=== PATIENT | female | born 1930 | race Caucasian/White ===

== ENCOUNTER 2018-01-04 11:06 | Emergency (ER) | payer MEDICARE ==
[~2018-01-04] VITALS: Ht 167.6 cm; Wt 60.3 kg
--- OUTSIDE RECORDS SUMMARY | 2018-01-04 11:08 | XMS REPORT | Clinical Summary ---
Author Author LEOBARDO [facility] Address Unknown Phone Unavailable Care Team Providers Care Manufacturing Mechanic Name Role Phone PCP Unavailable Allergies Active Allergy Reactions Severity Noted Date Comments Hydralazine Analogues Rash Low 01/29/2016 Current Medications Prescription Sig. Disp. Refills Start End Date Status Date RIVAROXABAN (XARELTO Take 20 mg by mouth Active ORAL) nightly . irbesartan (AVAPRO) 150 Take 150 mg by mouth Active MG tablet daily. furosemide (LASIX) 20 MG Take 20 mg by mouth Active tablet daily. cholecalciferol, vitamin Take 4,000 Units by mouth Active D3, 4,000 unit Tab daily. ascorbic acid, vitamin C, Take 1,000 mg by mouth Active (VITAMIN C) 1000 MG daily. tablet SACCHAROMYCES BOULARDII Take by mouth daily. Active (PROBIOTIC, S.BOULARDII, ORAL) amiodarone (PACERONE) 100 Take 1 tablet (100 mg 30 tablet 1 01/31/20 01/31/20 MG tablet total) by mouth daily. 16 17 amLODIPine (NORVASC) 5 MG Take 1 tablet (5 mg 60 tablet 1 01/31/20 01/31/20 tablet total) by mouth 2 (two) 16 17 times daily. hydrochlorothiazide Take 1 tablet (25 mg 30 tablet 0 01/31/20 (HYDRODIURIL) 25 MG total) by mouth daily. 16 17 tablet amiodarone (PACERONE) 200 Take 200 mg by mouth 2 09/11/19 Discontin MG tablet (two) times daily. 18 ued atenolol (TENORMIN) 25 MG Take 25 mg by mouth 2 09/11/19 Discontin tablet (two) times daily. 18 ued Active Problems Problem Noted Date Persistent atrial fibrillation (HCC) 09/11/2017 History of cardioversion -- 09/11/2017 -- single 200 joule impulse converted 09/11/2017 atrial fibrillation to sinus bradycardia -- [facility] Resolved Problems Problem Noted Date Resolved Date Symptomatic bradycardia 01/29/2016 09/11/2017 PAF (paroxysmal atrial fibrillation) (HCC) 01/29/2016 09/11/2017 Encounters Date Type Specialty Care Team Description [facility] History of cardioversion Encounter 09/11/2017 Orders Only General Internal Medicine after 01/03/2017 Family History Medical History Relation Name Comments Heart disease Mother Hypertension Sister Relation Name Status Comments Mother Sister Social History Tobacco Use Types Packs/Day Years Used Date Never Smoker Smokeless Tobacco: Never Used Alcohol Use Drinks/Week oz/Week Comments No Sex Assigned at Date Recorded Not on file Last Filed Vital Signs Vital Sign Reading Time Taken Blood Pressure 128/60 09/11/2017 1:00 PM MACHINE LEAD BURNER Pulse 39 09/11/2017 1:00 PM MACHINE LEAD BURNER Temperature 35.7 C (96.2 F) 09/11/2017 9:14 AM MACHINE LEAD BURNER Respiratory Rate 17 09/11/2017 1:00 PM MACHINE LEAD BURNER Oxygen Saturation 100% 09/11/2017 12:00 PM MACHINE LEAD BURNER Inhaled Oxygen - - Concentration Weight 64.2 kg (141 lb 9.6 oz) 09/11/2017 9:14 AM MACHINE LEAD BURNER Height 170.2 cm (5' 7") 09/11/2017 9:14 AM MACHINE LEAD BURNER Body Mass Index 22.18 09/11/2017 9:14 AM MACHINE LEAD BURNER Plan of Treatment Not on file Results * EKG-SCANNED (09/17/2017 10:20 AM) * RHYTHM STRIP - SCAN (09/17/2017 10:20 AM) * ECG 12 lead (09/11/2017 1:18 PM) Specimen Performing Laboratory [facility] Narrative Ventricular Rate 42 BPM Atrial Rate 42 BPM P-R Interval 158 ms QRS Duration 94 ms Q-T Interval 616 ms QTC Calculation(Bazett) 514 ms P [place] 98 degrees R [place] -52 degrees T [place] 268 degrees Marked sinus bradycardia with Premature supraventricular complexes Left axis deviation Possible Anterior infarct (cited on or before 29-JAN-2016) ST & T wave abnormality, consider inferolateral ischemia Prolonged QT Abnormal ECG When compared with ECG of 29-JAN-2016 17:37, Significant changes have occurred Confirmed by MD LETY, IHAB ([id number]) on 09/14/2017 1:36:13 PM Procedure Note Interface, External Ris In - 09/14/2017 1:36 PM MACHINE LEAD BURNER Ventricular Rate 42 BPM Atrial Rate 42 BPM P-R Interval 158 ms QRS Duration 94 ms Q-T Interval 616 ms QTC Calculation(Bazett) 514 ms P [place] 98 degrees R [place] -52 degrees T [place] 268 degrees Marked sinus bradycardia with Premature supraventricular complexes Left axis deviation Possible Anterior infarct (cited on or before 29-JAN-2016) ST & T wave abnormality, consider inferolateral ischemia Prolonged QT Abnormal ECG When compared with ECG of 29-JAN-2016 17:37, Significant changes have occurred Confirmed by MD LETY, IHAB ([id number]) on 09/14/2017 1:36:13 PM after 01/03/2017
[2018-01-04] MEDS ORDERED: TETANUS/DIPHTHERIA TOX ADULT 0.5 ML SYR IM ONE (11:45)
--- NOTE | 2018-01-04 12:25 | Diagnostic Imaging Report ---
PROCEDURE:X-RAY RIGHT LOWER LEG COMPARISON:None. INDICATIONS:LOWER LEG PAIN, FALL, HX OF ANKLE FRACTURE FINDINGS: There are no acute fractures, dislocations, lytic or blastic lesions. Old fracture deformities of the distal right fibula and screw fixation of the medial malleolus. The soft-tissues are unremarkable. CONCLUSION: No acute fracture or dislocation of the right ankle. Old fracture deformities of the distal right fibula and screw fixation of the medial malleolus. Dictated by: Nader Nicolas M.D. on 01/04/2018 at 12:26 Electronically approved by: Nader Nicolas M.D. on 01/04/2018 at 12:26
--- NOTE | 2018-01-04 13:34 | Diagnostic Imaging Report ---
EXAMINATION: Head and cervical spine CT without contrast. HISTORY: Status post fall, head trauma 2 days ago, pain, patient on Xerelto. COMPARISON: None. TECHNIQUE: Multidetector axial images were obtained without contrast from the foramen magnum to the vertex and through the cervical spine. The images were reconstructed using brain and bone algorithms. Thin section brain images were reformatted into coronal and sagittal planes. Image quality: Motion artifact limits evaluation of the skull base and upper cervical spine. HEAD CT FINDINGS: Skull: No lytic or blastic lesions. No fractures. Parenchyma: Moderate confluent periventricular, giang radiata and centrum semiovale white matter hypodensities, most likely nonspecific chronic microvascular ischemic changes. No mass, hemorrhage or CT evidence of acute vascular insult. Brain volume: Normal for age. Ventricles: No hydrocephalus or displacement. Arteries: No density suggestive of thrombus. Dural sinuses: No abnormal density. Extra-axial spaces: No abnormal density. Foramen magnum: No mass, Chiari malformation, or basilar invagination. Sella: No obvious mass. Paranasal/mastoid sinuses: Imaged portions unremarkable. CERVICAL SPINE CT FINDINGS: Alignment:Reversal of the cervical lordosis. Soft tissues: Partially visualized hypodense nodule in the right lobe of the thyroid gland and retropharyngeal right ICA is some herniation of the anatomy. Vertebrae: Fusion of the C3-C4 vertebral bodies, partial interbody fusion at C2-C3 and solid fusion of the posterior elements from C2 through C4 bilaterally. Minimal chronic anterior wedging of the C4 vertebral body, otherwise normal height and density. No acute fracture, infection or neoplasm. Degenerative changes: C1-C2: Normal. C2-C3: Mild facet arthrosis without stenosis. C3-C4: Fused level without stenosis. C4-C5: Small disc osteophyte uncovertebral and facet arthrosis. Mild foraminal narrowing. C5-C6: Disc osteophyte, uncovertebral and facet arthrosis mainly on the the right side. Severe right and moderate left foraminal stenosis. C6-C7: Disc osteophyte formation, bilateral uncovertebral and facet arthrosis. Moderate bilateral foraminal stenosis. C7-T1: Bilateral facet arthrosis with minimal anterolisthesis. No stenoses. IMPRESSION: Head CT: 1. No acute intracranial hemorrhage. 2. Moderate chronic microvascular ischemic changes Cervical spine CT: 1. No acute fractures or dislocations. 2. Chronic degenerative changes as described. Note: Acute post traumatic spinal cord, vascular or ligamentous injury cannot adequately be assessed with CT. Signed by: Dr. An Baldwin M.D. on 01/04/2018 1:31 PM
[2018-01-04 15:25] VITALS: BP 174/55
== END 2018-01-04 14:55 | disposition home or self-care (01) ==
LOC: ER 11:06
DX: S81.811A Laceration without foreign body, right lower leg, initial encounter (principal); M54.2 Cervicalgia; W01.0XXA Fall on same level from slipping, tripping and stumbling without subsequent striking against object, initial encounter; Y92.009 Unspecified place in unspecified non-institutional (private) residence as the place of occurrence of the external cause; Z79.01 Long term (current) use of anticoagulants; I48.91 Unspecified atrial fibrillation; I10 Essential (primary) hypertension
CPT/HCPCS: 70450; 72125; 90714; 99284

== ENCOUNTER 2018-01-17 00:35 | Emergency (ER) | payer MEDICARE ==
[~2018-01-17] VITALS: Ht 167.6 cm; Wt 60.3 kg
--- OUTSIDE RECORDS SUMMARY | 2018-01-17 00:38 | XMS REPORT | Continuity of Care Document ---
Author Author [facility] Organization [facility] Address [address] [place] [address] Phone Unavailable Care Team Providers Care Back Pad Inspector Name Role Phone BRITTON MCMILLAN MD PCP Insurance Providers Guarantor Joyce Lawrence Address [address] [place] [address] Email PTDECLINED Payer [employer] Medicare Advantage Policy Number [id number] Subscriber's Name Joyce Lawrence Relationship 18 Self / Same As Patient Group Number [id number] Group Name RETIRED Effective Date 96 Advance Directives Directive Response Recorded Date/Time Does the patient have an advance directive? No 03/29/16 6:23am If yes, is advance directive on file with [facility]? No 03/29/16 6:23am If not on file with [facility] will patient provide a copy? No 03/29/16 6:23am Do you have a Directive to Physician? No 01/04/18 12:18pm Do you have a Medical Power of Biological Science Technician Fish? No 01/04/18 12:18pm Do you have an out of hospital Do Not Resuscitate Order? No 01/04/18 12:18pm Do you have any special needs we should be aware of? No 01/04/18 12:18pm Do you have a support person here with you today? Yes 01/04/18 12:18pm Did patient receive Notice of Privacy Practices? Yes 01/04/18 12:18pm Did patient receive patient rights and responsibilities? Yes 01/04/18 12:18pm Problems No problem information available. Medications No medication information available. Social History Smoking Status Start Date Stop Date Never Smoker Hospital Discharge Instructions No hospital discharge instruction information available. Plan of Care Discharge Date 01/04/18 2:55pm Disposition HOME, SELF-CARE Condition at Discharge Stable Instructions/Education Provided Fall Prevention Wound Care (General) Prescriptions See Medication Section Referrals BRITTON MCMILLAN MD Order Date: Call for an appointment Address: [address] [place] [address] [id number] Additional Instructions/Education Call for follow up appointment to see your medical provider to ensure wound is healing. Take your medication as prescribed by your PCP. discussed at the bedside, drink fluids, rest and return to the emergency department for any fever, shortness of breath, chest pain, abdominal pain, trouble handling oral secretions or any new concerns. Functional Status No functional status information available. Allergies, Adverse Reactions, Alerts Allergen Type Severity Reaction Status Last Updated Codeine Allergy Hallucinations Active 03/28/16 Immunizations No immunization information available. Vital Signs Acute Vital Signs Vital Response Date/Time Pulse Pulse Rate (adult) 52 bpm (60 - 90) 01/04/2018 3:25pm Respiratory Rate 20 bpm (12 - 24) 01/04/2018 3:25pm Blood Pressure 174/55 mm Hg 01/04/2018 3:25pm Height 5 ft 6 in 01/04/2018 11:20am Weight 133 lb 01/04/2018 11:20am Body Mass Index 21.5 kg/m^2 01/04/2018 11:20am Results No relevant diagnostic test, laboratory data and/or discharge summary information available. Procedures Procedure Status Date Provider(s) Computed tomography of brain without radiopaque contrast Active 01/04/18 VITA JIMÉNEZ NP Computed tomography of cervical spine without contrast Active 01/04/18 VITA JIMÉNEZ NP Encounters Encounter Location Arrival/Admit Date Discharge/Depart Date Attending Provider Departed Emergency Room [facility] 01/04/18 11:06am 01/04 2:55pm SEVERIANO BRAGA MD
--- OUTSIDE RECORDS SUMMARY | 2018-01-17 00:38 | XMS REPORT | Clinical Summary ---
Author Author LEOBARDO [facility] Address Unknown Phone Unavailable Care Team Providers Care Circulation Librarian Name Role Phone PCP Unavailable Allergies Active [...] 09/11/2017 atrial fibrillation to sinus bradycardia -- [facility] Resolved Problems Problem Noted Date Resolved Date Symptomatic bradycardia 01/29/2016 09/11/2017 PAF (paroxysmal atrial fibrillation) (HCC) 01/29/2016 09/11/2017 Encounters Date Type Specialty [facility] En[facility] 09/11/2017 Orders Only General Internal Medicine after 01/16/2017 Family History Medical History Relation Name Comments Heart disease Mother Hypertension Sister Relation Name Status Comments Mother Sister Social History Tobacco Use Types Packs/Day Years Used Date Never Smoker Smokeless Tobacco: Never Used Alcohol Use Drinks/Week oz/Week Comments No Sex Assigned at Date Recorded Not on file Last Filed Vital Signs Vital Sign Reading Time Taken Blood Pressure 128/60 09/11/2017 1:00 PM APPLICATION INTEGRATION ENGINEER Pulse 39 09/11/2017 1:00 PM APPLICATION INTEGRATION ENGINEER Temperature 35.7 C (96.2 F) 09/11/2017 9:14 AM APPLICATION INTEGRATION ENGINEER Respiratory Rate 17 09/11/2017 1:00 PM APPLICATION INTEGRATION ENGINEER Oxygen Saturation 100% 09/11/2017 12:00 PM APPLICATION INTEGRATION ENGINEER Inhaled Oxygen - - Concentration Weight 64.2 kg (141 lb 9.6 oz) 09/11/2017 9:14 AM APPLICATION INTEGRATION ENGINEER Height 170.2 cm (5' 7") 09/11/2017 9:14 AM APPLICATION INTEGRATION ENGINEER Body Mass Index 22.18 09/11/2017 9:14 AM APPLICATION INTEGRATION ENGINEER Plan of Treatment Not on file Results * EKG-SCANNED (09/17/2017 10:20 AM) * RHYTHM STRIP - SCAN (09/17/2017 10:20 AM) * ECG 12 lead (09/11/2017 1:18 PM) Specimen Performing Laboratory [facility] Narrative Ventricular Rate 42 BPM Atrial Rate 42 BPM P-R Interval 158 ms QRS Duration 94 ms Q-T Interval 616 ms QTC Calculation(Bazett) 514 ms P [place] 98 degrees R [place] -52 degrees T [place] 268 degrees Marked sinus bradycardia with Premature supraventricular complexes Left axis deviation Possible Anterior infarct (cited on or before 29-JAN-2016) ST & T wave abnormality, consider inferolateral ischemia Prolonged QT Abnormal ECG When compared with ECG of 29-JAN-2016 17:37, Significant changes have occurred Confirmed by MD LETY, IHAB ([id number]) on 09/14/2017 1:36:13 PM Procedure Note Interface, External Ris In - 09/14/2017 1:36 PM APPLICATION INTEGRATION ENGINEER Ventricular Rate 42 BPM Atrial Rate 42 BPM P-R Interval 158 ms QRS Duration 94 ms Q-T Interval 616 ms QTC Calculation(Bazett) 514 ms P [place] 98 degrees R [place] -52 degrees T [place] 268 degrees Marked sinus bradycardia with Premature supraventricular complexes Left axis deviation Possible Anterior infarct (cited on or before 29-JAN-2016) ST & T wave abnormality, consider inferolateral ischemia Prolonged QT Abnormal ECG When compared with ECG of 29-JAN-2016 17:37, Significant changes have occurred Confirmed by MD LETY, IHAB ([id number]) on 09/14/2017 1:36:13 PM after 01/16/2017
--- OUTSIDE RECORDS SUMMARY | 2018-01-17 00:38 | XMS REPORT ---
Author Author [facility] Address Unknown Phone Unavailable Care Team Providers Care Coater Smoking Pipe Name Role Phone SEVERIANO BRAGA Unavailable Unavailable Problems This patient has no known problems. Allergies, Adverse Reactions, Alerts This patient has no known allergies or adverse reactions. Medications This patient has no known medications. Results Test Description Test Time Test Comments Text Results Atomic Results Result Comments LOWER LEG RIGHT [place] [address] Patient Name: JOYCE LAWRENCE MR #: [id number] : 1930 Age/Sex: 87/F Req #: [id number] Adm Physician: Ordered by: VITA JIMÉNEZ FUR TINTER Report #: [id number] Location: ER Room/Bed: Procedure: [id number] DX/LOWER LEG RIGHT Exam Date: 01/04/18 Exam Time: 1153 REPORT STATUS: Signed PROCEDURE: X-RAY RIGHT LOWER LEG COMPARISON: None. INDICATIONS: LOWER LEG PAIN, FALL, HX OF ANKLE FRACTURE FINDINGS: There are no acute fractures, dislocations, lytic or blastic lesions. Old fracture deformities of the distal right fibula and screw fixation of the medial malleolus. The soft-tissues are unremarkable. CONCLUSION: No acute fracture or dislocation of the right ankle. Old fracture deformities of the distal right fibula and screw fixation of the medial malleolus. Dictated by: Nader Regalado M.D. on 01/04/2018 at 12 :26 Electronically approved by: Nader Regalado M.D. on 01/04/2018 at 12: 26 Dictated By: NADER REGALADO MD [id number] Transcribed By: MARCIN on 01/04/18 1226 COPY TO: VITA JIMÉNEZ NP CT CERVICAL SPINE WO [place] [address] Patient Name: JOYCE LAWRENCE MR #: [id number] : 1930 Age/Sex: 87/F Req #: [id number] Adm Physician: Ordered by: VITA JIMÉNEZ NP Report #: [id number] Location: ER Room/Bed: Procedure: [id number] CT/CT CERVICAL SPINE WO Exam Date: 01/04/18 Exam Time: 1215 REPORT STATUS: Signed EXAMINATION: Head and cervical spine CT without contrast. HISTORY: Status post fall, head trauma 2 days ago, pain, patient on Xerelto. COMPARISON: None. TECHNIQUE: Multidetector axial images were obtained without contrast from the foramen magnum to the vertex and through the cervical spine. The images were reconstructed using brain and bone algorithms. Thin section brain images were reformatted into coronal and sagittal planes. Image quality: Motion artifact limits evaluation of the skull base and upper cervical spine. HEAD CT FINDINGS: Skull: No lytic or blastic lesions. No fractures. Parenchyma: Moderate confluent periventricular, giang radiata and centrum semiovale white matter hypodensities, most likely nonspecific chronic microvascular ischemic changes. No mass, hemorrhage or CT evidence of acute vascular insult. Brain volume: Normal for age. Ventricles: No hydrocephalus or displacement. Arteries: No density suggestive of thrombus. Dural sinuses: No abnormal density. Extra-axial spaces: No abnormal density. Foramen magnum: No mass, Chiari malformation, or basilar invagination. Sella: No obvious mass. Paranasal/mastoid sinuses : Imaged portions unremarkable. CERVICAL SPINE CT FINDINGS: Alignment:Reversal of the cervical lordosis. Soft tissues: Partially visualized hypodense nodule in the right lobe of the thyroid gland and retropharyngeal right ICA is some herniation of the anatomy. Vertebrae: Fusion of the C3-C4 vertebral bodies, partial interbody fusion at C2-C3 and solid fusion of the posterior elements from C2 through C4 bilaterally. Minimal chronic anterior wedging of the C4 vertebral body, otherwise normal height and density. No acute fracture, infection or neoplasm. Degenerative changes: C1-C2: Normal. C2-C3: Mild facet arthrosis without stenosis. C3-C4: Fused level without stenosis. C4-C5 : Small disc osteophyte uncovertebral and facet arthrosis. Mild foraminal narrowing. C5-C6: Disc osteophyte, uncovertebral and facet arthrosis mainly on the the right side. Severe right and moderate left foraminal stenosis. C6-C7: Disc osteophyte formation, bilateral uncovertebral and facet arthrosis. Moderate bilateral foraminal stenosis. C7-T1: Bilateral facet arthrosis with minimal anterolisthesis. No stenoses. IMPRESSION: Head CT: 1. No acute intracranial hemorrhage. 2. Moderate chronic microvascular ischemic changes Cervical spine CT: 1. No acute fractures or dislocations. 2. Chronic degenerative changes as described. Note: Acute post traumatic spinal cord, vascular or ligamentous injury cannot adequately be assessed with CT. Signed by: Dr. An Baldwin M.D. on 01/04/2018 1:31 PM Dictated By: AN BALDWIN MD [id number] Transcribed By: OSWALD on 01/04/18 1331 COPY TO: VITA JIMÉNEZ NP CT BRAIN WO [place] [address] Patient Name: JOYCE LAWRENCE MR #: [id number] : 1930 Age/Sex: 87/F Req #: [id number] [facility] Physician: Ordered by: VITA JIMÉNEZ FUR TINTER Report #: [id number] Location: ER Room/Bed: Procedure: [id number] CT/CT BRAIN WO Exam Date: 01/04/18 Exam Time: 1215 REPORT STATUS: Signed EXAMINATION: Head and cervical spine CT without contrast. HISTORY: Status post fall, head trauma 2 days ago, pain, patient on Xerelto. COMPARISON: None. TECHNIQUE: Multidetector axial images were obtained without contrast from the foramen magnum to the vertex and through the cervical spine. The images were reconstructed using brain and bone algorithms. Thin section brain images were reformatted into coronal and sagittal planes. Image quality: Motion artifact limits evaluation of the skull base and upper cervical spine. HEAD CT FINDINGS: Skull: No lytic or blastic lesions. No fractures. Parenchyma: Moderate confluent periventricular, giang radiata and centrum semiovale white matter hypodensities, most likely nonspecific chronic microvascular ischemic changes. No mass, hemorrhage or CT evidence of acute vascular insult. Brain volume: Normal for age. Ventricles: No hydrocephalus or displacement. Arteries: No density suggestive of thrombus. Dural sinuses: No abnormal density. Extra-axial spaces: No abnormal density. Foramen magnum: No mass, Chiari malformation, or basilar invagination. Sella: No obvious mass. Paranasal/mastoid sinuses : Imaged portions unremarkable. CERVICAL SPINE CT FINDINGS: Alignment:Reversal of the cervical lordosis. Soft tissues: Partially visualized hypodense nodule in the right lobe of the thyroid gland and retropharyngeal right ICA is some herniation of the anatomy. Vertebrae: Fusion of the C3-C4 vertebral bodies, partial interbody fusion at C2-C3 and solid fusion of the posterior elements from C2 through C4 bilaterally. Minimal chronic anterior wedging of the C4 vertebral body, otherwise normal height and density. No acute fracture, infection or neoplasm. Degenerative changes: C1-C2: Normal. C2-C3: Mild facet arthrosis without stenosis. C3-C4: Fused level without stenosis. C4-C5 : Small disc osteophyte uncovertebral and facet arthrosis. Mild foraminal narrowing. C5-C6: Disc osteophyte, uncovertebral and facet arthrosis mainly on the the right side. Severe right and moderate left foraminal stenosis. C6-C7: Disc osteophyte formation, bilateral uncovertebral and facet arthrosis. Moderate bilateral foraminal stenosis. C7-T1: Bilateral facet arthrosis with minimal anterolisthesis. No stenoses.
--- NOTE | 2018-01-17 01:35 | Diagnostic Imaging Report ---
EXAMINATION: Head CT without contrast. HISTORY:Status post fall. COMPARISON:CT brain from 01/04/2018. TECHNIQUE: Multidetector axial images were obtained from the foramen magnum to the vertex without contrast. The images were reconstructed using brain and bone algorithms. Thin section brain images were reformatted into coronal and sagittal planes. Intravenous contrast: None IMAGE QUALITY: Acceptable. FINDINGS: Skull/scalp: No lytic or blastic. lesions. No surgical changes. Parenchyma: Nonspecific bilateral frontoparietal confluent periventricular and patchy subcortical white matter hypodensity are likely related to small vessel ischemic changes. No acute hemorrhage, mass or acute major vascular territorial infarct. Arteries: Atherosclerotic calcification in bilateral carotid siphon. Dural sinuses: No abnormal density suggestive of thrombosis. Ventricles: No hydrocephalus or displacement. Extra-axial spaces: No abnormal density. Brain volume: Generalized age-related cerebral volume loss. Craniocervical junction: No mass, Chiari malformation, or basilar invagination. Sella: No mass. Paranasal/mastoid sinuses: Imaged portions unremarkable. IMPRESSION: No acute intracranial abnormality. No change since CT head from 01/04/2018. Chronic findings: Moderate supratentorial white matter microvascular ischemic changes. Generalized age-related cerebral volume loss. Signed by: Dr. Vianca Lenz M.D. on 01/17/2018 1:31 AM
--- NOTE | 2018-01-17 01:44 | Diagnostic Imaging Report ---
History: Fall. Comparison studies: CT cervical spine from 01/04/2018. Technique: Axial images were obtained through the cervical region.. Coronal and sagittal images reconstructed from the axial data.. Intravenous contrast: None Findings: Fractures: None. Soft tissue injuries: None. Atlantoaxial articulation: Intact. Alignment: Reversal of normal cervical lordosis is either positional or due to muscle spasm. Mild dextrocurvature of the cervical spine. 1.5 mm grade 1 retrolisthesis at C4-C5 Cervicomedullary junction: No abnormalities. The foramen magnum is patent. Soft tissues: Unchanged spiculated airspace opacity in right lung apex and scarring in left lung apex. Vertebrae: Diffuse osseous demineralization. Osseous fusion of posterior elements from C2 to C4. No fractures, infection or neoplasm. Degenerative changes: C3-C4: Near-complete loss of intervertebral disc space with partial osseous fusion. C4-C5: Moderate degenerative disc disease. Mild right foraminal stenosis due to facet and uncovertebral arthrosis. C5-C6: Moderate to severe degenerative disc disease. Posterior disc osteophyte complex results in mild canal stenosis. Severe right foraminal stenosis due to facet and uncovertebral arthrosis. C6-C7: Moderate degenerative disc disease. Moderate right and mild left foraminal stenosis due to facet and uncovertebral arthrosis.. IMPRESSION: 1. No acute cervical spine fracture. Reversal of normal cervical lordosis is either positional or due to muscle spasm. 2. Ligament, spinal cord and or vascular abnormalities cannot be excluded on the basis of this examination. 3. Cervical spondylosis as detailed above. Signed by: Dr. Vianca Lenz M.D. on 01/17/2018 1:40 AM
[2018-01-17 01:47] VITALS: BP 181/76
== END 2018-01-17 01:52 | disposition home or self-care (01) ==
LOC: ER 00:35
DX: S00.83XA Contusion of other part of head, initial encounter (principal); W18.2XXA Fall in (into) shower or empty bathtub, initial encounter; Y93.E1 Activity, personal bathing and showering; Y92.002 Bathroom of unspecified non-institutional (private) residence as the place of occurrence of the external cause; I10 Essential (primary) hypertension; I48.91 Unspecified atrial fibrillation
CPT/HCPCS: 70450; 72125; 99283

== ENCOUNTER 2018-02-18 13:30 | Emergency (ER) | payer MEDICARE ==
[~2018-02-18] VITALS: Ht 167.6 cm; Wt 60.3 kg
[2018-02-18] MEDS ORDERED: IBUPROFEN 600 MG TAB PO STA (14:30)
[2018-02-18 15:20] LABS: BASOPHILS % 0.2 % (0.0-1.0); EOSINOPHILS % 0.1 % (0.0-6.0); HEMOGLOBIN 13.4 g/dL (12.0-16.0); LYMPHOCYTES # (AUTO) 0.7 (1.0-3.2); LYMPHOCYTES % 4.6 % (18.0-39.1); MEAN CORPUSCULAR HEMOGLOBIN 30.5 pg (28-32); MEAN CORPUSCULAR HGB CONC 33.5 g/dL (31-35); MEAN CORPUSCULAR VOLUME 90.9 fL (81-99); MONOCYTES # (AUTO) 0.7 (0.2-0.8); MONOCYTES % 4.8 % (4.4-11.3); NEUTROPHILS # (AUTO) 13.8 (2.1-6.9); NEUTROPHILS % 89.8 % (38.7-80.0); PLATELET COUNT 168 x10e3/uL (140-360); RED CELL DISTRIBUTION WIDTH 14.7 % (11.7-14.4)
[2018-02-18 15:32] LABS: BILIRUBIN,URINE NEGATIVE (NEGATIVE); CLARITY,URINE CLEAR (CLEAR); COLOR,URINE YELLOW (YELLOW); KETONES,URINE NEGATIVE (NEGATIVE); LEUKOCYTE ESTERASE ,URINE NEGATIVE (NEGATIVE); NITRITE,URINE NEGATIVE (NEGATIVE); PROTEIN,URINE DIPSTICK NEGATIVE (NEGATIVE); URINE UROBILINOGEN 0.2 mg/dL (0.2 - 1)
[2018-02-18 15:32] LABS: ALBUMIN 4.1 g/dL (3.5-5.0); ALBUMIN/GLOBULIN RATIO 1.1 (0.8-2.0); ANION GAP 14.1 mmol/L (8-16); CALCIUM 9.9 mg/dL (8.4-10.2); CREATININE, SERUM 1.22 mg/dL (0.57-1.11); POTASSIUM 4.1 mmol/L (3.5-5.1)
[2018-02-18 15:38] LABS: EPITHELIAL CELLS,URINE FEW /LPF; MUCUS,URINE FEW (RARE)
--- NOTE | 2018-02-18 15:38 | Diagnostic Imaging Report ---
PROCEDURE: Frontal and lateral views of the chest. COMPARISON: Patients [facility], DX, CHEST SINGLE (PORTABLE), 03/28/2016, 9:02. INDICATIONS: LUMP TO BACK OF HEAD. LETHARGY FINDINGS: Exam limited by patient rotation. Lines/tubes: None. Lungs: The lungs are well inflated and grossly clear. There is no evidence of pneumonia or pulmonary edema. Pleura: There is no pleural effusion or pneumothorax. Heart and mediastinum: Stable enlargement of the cardiac silhouette, with prominence of the left atrial appendage. Pulmonary vasculature is normal. Atherosclerotic calcification of the aortic arch. Bones: No acute bony abnormality. IMPRESSION: 1. enlarged cardiac silhouette, without acute cardiopulmonary abnormalities. Portillo Gunderson M.D. Dictated by: Portillo Gunderson M.D. on 02/18/2018 at 15:41 Electronically approved by: Portillo Gunderson M.D. on 02/18/2018 at 15:41
[2018-02-18] MEDS ORDERED: ACETAMINOPHEN 325 MG TAB ONE (16:59)
[2018-02-18] MEDS ORDERED: ACETAMINOPHEN 325 MG TAB PO ONE (17:00)
[2018-02-18 17:22] LABS: STREPTOCOCCUS GRP A ANTIGEN NEGATIVE (NEGATIVE)
[2018-02-18 17:39] LABS: INFLUENZAE A&B ANTIGEN (RAPID) NEGATIVE (NEGATIVE)
[2018-02-18] MEDS ORDERED: CEFTRIAXONE SOD 1 GM VIAL IV SCH (18:00)
[2018-02-18 18:35] VITALS: BP 121/65
== END 2018-02-18 18:37 | disposition home or self-care (01) ==
LOC: ER 13:30
DX: R50.9 Fever, unspecified (principal); R59.1 Generalized enlarged lymph nodes; D72.829 Elevated white blood cell count, unspecified; I10 Essential (primary) hypertension; I48.91 Unspecified atrial fibrillation
CPT/HCPCS: 36415; 71046; 80053; 81001; 83518; 85025; 87040; 87070; 87071; 87086; 87205; 87400; 99284

== ENCOUNTER 2018-06-20 15:18 | Observation (INO) | payer MEDICARE ==
[~2018-06-20] VITALS: Ht 167.6 cm; Wt 62.4 kg
--- OUTSIDE RECORDS SUMMARY | 2018-06-20 15:20 | XMS REPORT | Clinical Summary ---
Author Author LEOBARDO [facility] Address Unknown Phone Unavailable Care Team Providers Care Transfer Specialist Name Role Phone PCP Unavailable Allergies Active [...] daily. Active (PROBIOTIC, S.BOULARDII, ORAL) amiodarone (PACERONE) 200 Take 200 mg by [...] 09/11/2017 atrial fibrillation to sinus bradycardia -- [facility] Resolved Problems Problem Noted Date Resolved Date Symptomatic bradycardia 01/29/2016 09/11/2017 PAF (paroxysmal atrial fibrillation) (HCC) 01/29/2016 09/11/2017 Encounters Date Type Specialty Care Team Description 09/11/2017 [facility] [place] History of cardioversion Encounter 09/11/2017 Orders Only General Internal Medicine after 06/19/2017 Family History Medical History Relation Name Comments Heart disease Mother Hypertension Sister Relation Name Status Comments Mother Sister Social History Tobacco Use Types Packs/Day Years Used Date Never Smoker Smokeless Tobacco: Never Used Alcohol Use Drinks/Week oz/Week Comments No Sex Assigned at Date Recorded Not on file Last Filed Vital Signs Vital Sign Reading Time Taken Blood Pressure 128/60 09/11/2017 1:00 PM HOUSEKEEPING MANAGER Pulse 39 09/11/2017 1:00 PM HOUSEKEEPING MANAGER Temperature 35.7 C (96.2 F) 09/11/2017 9:14 AM HOUSEKEEPING MANAGER Respiratory Rate 17 09/11/2017 1:00 PM HOUSEKEEPING MANAGER Oxygen Saturation 100% 09/11/2017 12:00 PM HOUSEKEEPING MANAGER Inhaled Oxygen - - Concentration Weight 64.2 kg (141 lb 9.6 oz) 09/11/2017 9:14 AM HOUSEKEEPING MANAGER Height 170.2 cm (5' 7") 09/11/2017 9:14 AM HOUSEKEEPING MANAGER Body Mass Index 22.18 09/11/2017 9:14 AM HOUSEKEEPING MANAGER Plan of Treatment Not on file Results * EKG-SCANNED (09/17/2017 10:20 AM) * RHYTHM STRIP - SCAN (09/17/2017 10:20 AM) * ECG 12 lead (09/11/2017 1:18 PM) Specimen Performing Laboratory [place] Narrative Ventricular Rate 42 BPM Atrial Rate 42 BPM P-R Interval 158 ms QRS Duration 94 ms Q-T Interval 616 ms QTC Calculation(Bazett) 514 ms P [place] 98 degrees R [place] -52 degrees T [place] 268 degrees Marked sinus bradycardia with Premature supraventricular complexes Left axis deviation Possible Anterior infarct (cited on or before 29-JAN-2016) ST & T wave abnormality, consider inferolateral ischemia Prolonged QT Abnormal ECG When compared with ECG of 29-JAN-2016 17:37, Significant changes have occurred Confirmed by MD LETY, IHAB ([id number]) on 09/14/2017 1:36:13 PM Procedure Note Interface, External Ris In - 09/14/2017 1:36 PM HOUSEKEEPING MANAGER Ventricular Rate 42 BPM Atrial Rate 42 BPM P-R Interval 158 ms QRS Duration 94 ms Q-T Interval 616 ms QTC Calculation(Bazett) 514 ms P [place] 98 degrees R [place] -52 degrees T [place] 268 degrees Marked sinus bradycardia with Premature supraventricular complexes Left axis deviation Possible Anterior infarct (cited on or before 29-JAN-2016) ST & T wave abnormality, consider inferolateral ischemia Prolonged QT Abnormal ECG When compared with ECG of 29-JAN-2016 17:37, Significant changes have occurred Confirmed by MD LETY, [facility] ([id number]) on 09/14/2017 1:36:13 PM after 06/19/2017
[2018-06-20] MEDS ORDERED: METOPROLOL TARTRATE INJ 1 MG/ML VIAL IV ONE (16:00)
[2018-06-20 16:51] LABS: BASOPHILS % 0.4 % (0.0-1.0); EOSINOPHILS # (AUTO) 0.1 (0.0-0.4); EOSINOPHILS % 1.4 % (0.0-6.0); HEMATOCRIT 37.1 % (34.2-44.1); HEMOGLOBIN 12.1 g/dL (12.0-16.0); LYMPHOCYTES # (AUTO) 1.3 (1.0-3.2); LYMPHOCYTES % 22.6 % (18.0-39.1); MEAN CORPUSCULAR HEMOGLOBIN 29.8 pg (28-32); MEAN CORPUSCULAR HGB CONC 32.6 g/dL (31-35); MEAN CORPUSCULAR VOLUME 91.4 fL (81-99); MONOCYTES # (AUTO) 0.5 (0.2-0.8); MONOCYTES % 8.8 % (4.4-11.3); NEUTROPHILS # (AUTO) 3.7 (2.1-6.9); NEUTROPHILS % 66.4 % (38.7-80.0); PLATELET COUNT 160 x10e3/uL (140-360); RED BLOOD COUNT 4.06 x10e6/uL (3.6-5.1); RED CELL DISTRIBUTION WIDTH 15.5 % (11.7-14.4)
[2018-06-20 17:10] LABS: INR 1.36; PROTHROMBIN TIME 17.9 seconds (11.9-14.5)
[2018-06-20 17:11] LABS: PARTIAL THROMBOPLASTIN TIME 38.7 seconds (23.8-35.5)
[2018-06-20 17:23] LABS: ALBUMIN/GLOBULIN RATIO 1.5 (0.8-2.0); ANION GAP 14.1 mmol/L (8-16); CALCIUM 9.8 mg/dL (8.4-10.2); CREATININE, SERUM 1.46 mg/dL (0.57-1.11); POTASSIUM 4.1 mmol/L (3.5-5.1)
--- NOTE | 2018-06-20 17:27 | Diagnostic Imaging Report ---
EXAMINATION: CHEST 2 VIEWS INDICATION: ^hr high ^[id number] ^[id number] COMPARISON: None FINDINGS: PA and lateral views TUBES and LINES: None. LUNGS: Lungs are well inflated. Lungs are clear. There is no evidence of pneumonia or pulmonary edema. PLEURA: No pleural effusion or pneumothorax. HEART AND MEDIASTINUM: Enlargement of the cardiac silhouette. Moderate calcifications of the aortic arch. BONES AND SOFT TISSUES: Multilevel degenerative changes of the thoracic spine. Soft tissues are unremarkable. UPPER ABDOMEN: No free air under the diaphragm. IMPRESSION: No acute thoracic abnormality. Signed by: Dr. Annette Cortez M.D. on 06/20/2018 5:24 PM
[2018-06-20 17:29] LABS: CREATINE KINASE MB 1.8 ng/mL (0-5.0)
[2018-06-20 17:48] LABS: CLARITY,URINE CLEAR (CLEAR); COLOR,URINE YELLOW (YELLOW)
[2018-06-20 17:49] LABS: BILIRUBIN,URINE NEGATIVE (NEGATIVE); KETONES,URINE TRACE (NEGATIVE); LEUKOCYTE ESTERASE ,URINE NEGATIVE (NEGATIVE); NITRITE,URINE NEGATIVE (NEGATIVE); PROTEIN,URINE DIPSTICK 2+ (NEGATIVE); RBC,URINE 0-5 /HPF (0-5); URINE UROBILINOGEN 0.2 mg/dL (0.2 - 1); WBC,URINE (MAN) 0-5 /HPF (0-5)
[2018-06-20 17:50] LABS: BACTERIA,URINE FEW /HPF; EPITHELIAL CELLS,URINE RARE /LPF; MUCUS,URINE FEW (RARE)
[2018-06-20] MEDS ORDERED: IRBESARTAN300 MG PO (18:26)
[2018-06-20] MEDS ORDERED: FUROSEMIDE20 MG PO (18:26)
[2018-06-20] MEDS ORDERED: LEVOCETIRIZINE D5 MG INH (18:26)
[2018-06-20] MEDS ORDERED: PREDNISONE10 MG PO (18:26)
[2018-06-20] MEDS ORDERED: AMIODARONE HCL200 MG PO (18:26)
[2018-06-20] MEDS ORDERED: XARELTO15 MG PO (18:26)
[2018-06-20] MEDS ORDERED: LEVOTHYROXINE50 MCG PO (18:26)
--- OUTSIDE RECORDS SUMMARY | 2018-06-20 18:44 | XMS REPORT | Clinical Summary ---
Author Author LEOBARDO [facility] Address Unknown Phone Unavailable Care Team Providers Care Obstetrics And Gynecology Professor Name Role Phone PCP Unavailable Allergies Active [...] fibrillation to sinus bradycardia -- [facility] Resolved Problems Problem Noted Date Resolved Date Symptomatic bradycardia 01/29/2016 09/11/2017 PAF (paroxysmal atrial fibrillation) (HCC) 01/29/2016 09/11/2017 Encounters Date Type Specialty Care Team Description [facility] of [facility]version Encounter 09/11/2017 Orders [...] Taken Blood Pressure 128/60 09/11/2017 1:00 PM PBX REPAIRER Pulse 39 09/11/2017 1:00 PM PBX REPAIRER Temperature 35.7 C (96.2 F) 09/11/2017 9:14 AM PBX REPAIRER Respiratory Rate 17 09/11/2017 1:00 PM PBX REPAIRER Oxygen Saturation 100% 09/11/2017 12:00 PM PBX REPAIRER Inhaled Oxygen - - Concentration Weight 64.2 kg (141 lb 9.6 oz) 09/11/2017 9:14 AM PBX REPAIRER Height 170.2 cm (5' 7") 09/11/2017 9:14 AM PBX REPAIRER Body Mass Index 22.18 09/11/2017 9:14 AM PBX REPAIRER Plan of Treatment Not on file Results * EKG-SCANNED (09/17/2017 10:20 AM) * RHYTHM STRIP - SCAN (09/17/2017 10:20 AM) * ECG 12 lead (09/11/2017 1:18 PM) Specimen Performing Laboratory [place] Narrative Ventricular Rate 42 BPM Atrial Rate 42 BPM P-R Interval 158 ms QRS Duration 94 ms Q-T Interval 616 ms QTC Calculation(Bazett) 514 ms P [place] 98 degrees R [place] -52 degrees T [place] 268 degrees Marked sinus bradycardia with Premature supraventricular complexes Left axis deviation Possible Anterior infarct (cited on or before 29-JAN-2016) ST & T wave abnormality, consider inferolateral ischemia Prolonged QT Abnormal ECG When compared with ECG of 29-JAN-2016 17:37, Significant changes have occurred Confirmed by MD LETY, IHAB ([id number]) on 09/14/2017 1:36:13 PM Procedure Note Interface, External Ris In - 09/14/2017 1:36 PM PBX REPAIRER Ventricular Rate 42 BPM Atrial Rate 42 BPM P-R Interval 158 ms QRS Duration 94 ms Q-T Interval 616 ms QTC Calculation(Bazett) 514 ms P [place] 98 degrees R [place] -52 degrees T [place] 268 degrees Marked sinus bradycardia with Premature supraventricular complexes Left axis deviation Possible Anterior infarct (cited on or before 29-JAN-2016) ST & T wave abnormality, consider inferolateral ischemia Prolonged QT Abnormal ECG When compared with ECG of 29-JAN-2016 17:37, Significant changes have occurred Confirmed by MD LETY, [facility] ([id number]) on 09/14/2017 1:36:13 PM after 06/19/2017
[2018-06-20] MEDS ORDERED: METOPROLOL TARTRATE 25 MG TAB PO NR (18:59)
[2018-06-20] MEDS ORDERED: METOPROLOL TARTRATE 25 MG TAB ONE (19:02)
[2018-06-20] MEDS ORDERED: HYDRALAZINE HCL 20 MG/ML VIAL IV NR (19:18)
[2018-06-20] MEDS ORDERED: HYDRALAZINE HCL 20 MG/ML VIAL ONE (19:25)
[2018-06-20 20:22] VITALS: BP 153/91
[2018-06-20 20:30] VITALS: BP 153/91
[2018-06-20 21:35] VITALS: BP 144/95
[2018-06-20 23:59] VITALS: BP 119/74
[2018-06-21 04:00] VITALS: BP 144/94
[2018-06-21 05:39] LABS: BASOPHILS % 0.6 % (0.0-1.0); EOSINOPHILS # (AUTO) 0.1 (0.0-0.4); EOSINOPHILS % 1.8 % (0.0-6.0); HEMATOCRIT 33.5 % (34.2-44.1); LYMPHOCYTES # (AUTO) 1.4 (1.0-3.2); LYMPHOCYTES % 27.2 % (18.0-39.1); MEAN CORPUSCULAR HEMOGLOBIN 29.6 pg (28-32); MEAN CORPUSCULAR HGB CONC 32.8 g/dL (31-35); MEAN CORPUSCULAR VOLUME 90.1 fL (81-99); MONOCYTES # (AUTO) 0.6 (0.2-0.8); MONOCYTES % 12.4 % (4.4-11.3); NEUTROPHILS # (AUTO) 2.9 (2.1-6.9); NEUTROPHILS % 57.8 % (38.7-80.0); PLATELET COUNT 136 x10e3/uL (140-360); RED BLOOD COUNT 3.72 x10e6/uL (3.6-5.1); RED CELL DISTRIBUTION WIDTH 15.4 % (11.7-14.4)
[2018-06-21 06:02] LABS: ALBUMIN 3.2 g/dL (3.5-5.0); ALBUMIN/GLOBULIN RATIO 1.3 (0.8-2.0); ANION GAP 11.7 mmol/L (8-16); CALCIUM 9.2 mg/dL (8.4-10.2); CREATININE, SERUM 1.07 mg/dL (0.57-1.11); POTASSIUM 3.7 mmol/L (3.5-5.1)
[2018-06-21 08:56] VITALS: BP 144/98
[2018-06-21] MEDS ORDERED: METOPROLOL TARTRATE 25 MG TAB PO SCH (09:00)
[2018-06-21 10:22] VITALS: BP 144/98
[2018-06-21 10:25] LABS: CREATINE KINASE MB 0.9 ng/mL (0-5.0)
[2018-06-21 12:22] VITALS: BP 148/93
[2018-06-21] MEDS: CARVEDILOL 3.125 MG TAB PO SCH ×2 (12:30→16:58)
[2018-06-21] MEDS ORDERED: COREG3.125 MG PO (14:31)
--- NOTE | 2018-06-21 20:54 | Discharge Summary ---
PRIMARY CARE PHYSICIAN: BRITTON MCMILLAN MD at [facility]. FINAL DIAGNOSIS: Asymptomatic tachycardia. SECONDARY DIAGNOSES 1. Atrial fibrillation, status post ablation. 2. Hypertension. 3. Systolic congestive heart failure, stable, compensated. 4. Hypothyroidism. CONSULTANTS: None. PROCEDURES/STUDIES PERFORMED: None. HISTORY: Per H&P. HOSPITAL COURSE: The patient was admitted, appears to be in sinus tachycardia. She is completely asymptomatic. Her tachycardia can very well be due to recent increase in her thyroid dosage, which was recently dropped down in terms of dosage. On her echocardiogram, her EF is 30% to 35%. The patient appears to be well compensated at this time. However, because of tachycardia and systolic CHF, I certainly recommend beta jayro. However, the patient is extremely reluctant to take anything before talking to her ground host/hostess. At this time, I will go ahead and start her on Coreg 6.25 mg twice a day. If her heart rate is better, the patient can go home. However, the patient potentially may not fill the prescription until she talks to her [facility] ground host/hostess. CONDITION ON DISCHARGE: Stable. DISCHARGE MEDICATIONS: Please see medication reconciliation form. MYRNA HOLLY M.D. Job#: [id number] GH cc:BRITTON MCMILLAN MD
== END 2018-06-21 17:00 | disposition home or self-care (01) ==
LOC: ER 15:18 → ERHOLD 18:41 → MED/SURG 20:11
PROVIDERS: ADMIT Internal Medicine; ATTEND Internal Medicine
DX: R00.0 Tachycardia, unspecified (principal); I48.91 Unspecified atrial fibrillation; I11.0 Hypertensive heart disease with heart failure; I50.20 Unspecified systolic (congestive) heart failure; R55 Syncope and collapse; E03.9 Hypothyroidism, unspecified
CPT/HCPCS: 36415 ×2; 71046; 80053 ×2; 81001; 82550 ×2; 82553 ×2; 84443; 84484 ×2; 85025 ×2; 85610; 85730; 93005; 93306; 99284; G0378 ×2; J0360

== ENCOUNTER 2018-06-27 11:17 | Emergency (ER) | payer MEDICARE ==
[~2018-06-27] VITALS: Ht 167.6 cm; Wt 62.1 kg
[~2018-06-27 11:17] MED LIST: AMIODARONE HCL200 MG PO; COREG3.125 MG PO; FUROSEMIDE20 MG PO; IRBESARTAN300 MG PO; LEVOCETIRIZINE D5 MG INH; LEVOTHYROXINE50 MCG PO; PREDNISONE10 MG PO; XARELTO15 MG PO
--- OUTSIDE RECORDS SUMMARY | 2018-06-27 11:19 | XMS REPORT | Clinical Summary ---
Author Author LEOBARDO [employer] [facility] Address Unknown Phone Unavailable Care Team Providers Care Nurse Special Name Role Phone Tuan Lopez MD PCP Unavailable Pb New Yusuf Unavailable Allergies Comments Active Allergy Reactions Severity Noted Date Hydralazine Analogues Rash Low 01/29/2016 Medications End Date Status Medication Sig Dispensed Refills Start Date Active RIVAROXABAN (XARELTO Take 20 mg by 0 ORAL) mouth nightly . Active irbesartan (AVAPRO) 150 Take 150 mg 0 MG tablet by mouth daily. Active furosemide (LASIX) 20 MG Take 20 mg by 0 tablet mouth daily. Active cholecalciferol, vitamin Take 4,000 0 D3, 4,000 unit Tab Units by mouth daily. Active ascorbic acid, vitamin C, Take 1,000 mg 0 (VITAMIN C) 1000 MG by mouth tablet daily. Active SACCHAROMYCES BOULARDII Take by mouth 0 (PROBIOTIC, S.BOULARDII, daily. ORAL) 09/11/2017 Discontinued amiodarone (PACERONE) 200 Take 200 mg 0 MG tablet by mouth 2 (two) times daily. 09/11/2017 Discontinued atenolol (TENORMIN) 25 MG Take 25 mg by 0 tablet mouth 2 (two) times daily. Active Problems Problem Noted Date Persistent atrial fibrillation 09/11/2017 History of cardioversion -- 09/11/2017 -- single 200 joule impulse converted 09/11/2017 atrial fibrillation to sinus bradycardia -- [facility] Resolved Problems Problem Noted Date Resolved Date Symptomatic bradycardia 01/29/2016 09/11/2017 PAF (paroxysmal atrial fibrillation) 01/29/2016 09/11/2017 Encounters Care Team Description Date Type Specialty Ezra Rios MD History of cardioversion 09/11/2017 Hospital Encounter 09/11/2017 Orders Only General Internal Medicine after 06/26/2017 Family History Medical History Relation Name Comments Heart disease Mother Hypertension Sister Relation Name Status Comments Mother Sister Social History Date Tobacco Use Types Packs/Day Years Used Never Smoker Smokeless Tobacco: Never Used Alcohol Use Drinks/Week oz/Week Comments No Sex Assigned at Date Recorded Not on file Industry Job Start Date Occupation Not on file Not on file Not on file Travel End Travel History Travel Start No recent travel history available. Last Filed Vital Signs Time Taken Vital Sign Reading 09/11/2017 1:00 PM COLLATERAL CLERK Blood Pressure 128/60 09/11/2017 1:00 PM COLLATERAL CLERK Pulse 39 09/11/2017 9:14 AM COLLATERAL CLERK Temperature 35.7 C (96.2 F) 09/11/2017 1:00 PM COLLATERAL CLERK Respiratory Rate 17 09/11/2017 12:00 PM COLLATERAL CLERK Oxygen Saturation 100% - Inhaled Oxygen - Concentration 09/11/2017 9:14 AM COLLATERAL CLERK Weight 64.2 kg (141 lb 9.6 oz) 09/11/2017 9:14 AM COLLATERAL CLERK Height 170.2 cm (5' 7") 09/11/2017 9:14 AM COLLATERAL CLERK Body Mass Index 22.18 Plan of Treatment Not on file Procedures Comments Procedure Name Priority Date/Time Associated Diagnosis REPORT OF PROCEDURE - 09/17/2017 ENDOSCOPY SCAN 10:20 AM COLLATERAL CLERK RHYTHM STRIP - SCAN 09/17/2017 10:20 AM COLLATERAL CLERK ECG 12-LEAD Routine 09/11/2017 1:18 PM COLLATERAL CLERK after 06/26/2017 Results * EKG-SCANNED (09/17/2017 10:20 AM COLLATERAL CLERK) Narrative Performed At * RHYTHM STRIP - SCAN (09/17/2017 10:20 AM COLLATERAL CLERK) Narrative Performed At * ECG 12 lead (09/11/2017 1:18 PM COLLATERAL CLERK) Narrative Performed At Ventricular Rate 42 BPM GE MUSE Atrial Rate 42 BPM P-R Interval 158 ms QRS Duration 94 ms Q-T Interval 616 ms QTC Calculation(Bazett) 514 ms P [place] 98 degrees R [place] -52 degrees T [place] 268 degrees Marked sinus bradycardia with Premature supraventricular complexes Left axis deviation Possible Anterior infarct (cited on or before 29-JAN-2016) ST & T wave abnormality, consider inferolateral ischemia Prolonged QT Abnormal ECG When compared with ECG of 29-JAN-2016 17:37, Significant changes have occurred Confirmed by MD LETY, IHAB ([id number]) on 09/14/2017 1:36:13 PM Procedure Note Interface, External Ris In - 09/14/2017 1:36 PM COLLATERAL CLERK Ventricular Rate 42 BPM Atrial Rate 42 BPM P-R Interval 158 ms QRS Duration 94 ms Q-T Interval 616 ms QTC Calculation(Bazett) 514 ms P [place] 98 degrees R [place] -52 degrees T [place] 268 degrees Marked sinus bradycardia with Premature supraventricular complexes Left axis deviation Possible Anterior infarct (cited on or before 29-JAN-2016) ST & T wave abnormality, consider inferolateral ischemia Prolonged QT Abnormal ECG When compared with ECG of 29-JAN-2016 17:37, Significant changes have occurred Confirmed by MD LETY, IHAB ([id number]) on 09/14/2017 1:36:13 PM Performing Organization Address City/State/Zipcode Phone Number GE MUSE after 06/26/2017 Insurance Payer Benefit Subscriber ID Type Phone Address Plan / Group [employer] xxxxxxxxxxx MEDICARE ADV Advance Directives For more information, please contact: [phone] [place] [address] Date Inactivated Comments Code Status Date Activated 09/11/2017 5:03 PM Full Code 09/11/2017 10:20 AM This code status was determined by: Patient 01/31/2016 6:34 PM Full Code 01/29/2016 8:40 PM This code status was determined by: Patient
[2018-06-27] MEDS ORDERED: SODIUM CHLORIDE 0.9% 500ML 500 ML IV STA (11:38)
[2018-06-27] MEDS ORDERED: METOPROLOL TARTRATE INJ 1 MG/ML VIAL IV SCH (11:45)
[2018-06-27] MEDS ORDERED: METOPROLOL TARTRATE INJ 1 MG/ML VIAL ONE (11:46)
[2018-06-27 12:09] LABS: BASOPHILS % 0.3 % (0.0-1.0); EOSINOPHILS # (AUTO) 0.1 (0.0-0.4); HEMATOCRIT 41.7 % (34.2-44.1); HEMOGLOBIN 13.8 g/dL (12.0-16.0); LYMPHOCYTES # (AUTO) 1.2 (1.0-3.2); LYMPHOCYTES % 17.6 % (18.0-39.1); MEAN CORPUSCULAR HEMOGLOBIN 30.3 pg (28-32); MEAN CORPUSCULAR HGB CONC 33.1 g/dL (31-35); MEAN CORPUSCULAR VOLUME 91.6 fL (81-99); MONOCYTES # (AUTO) 0.4 (0.2-0.8); MONOCYTES % 6.3 % (4.4-11.3); NEUTROPHILS % 74.5 % (38.7-80.0); PLATELET COUNT 162 x10e3/uL (140-360); RED BLOOD COUNT 4.55 x10e6/uL (3.6-5.1); RED CELL DISTRIBUTION WIDTH 15.4 % (11.7-14.4)
--- NOTE | 2018-06-27 12:17 | Diagnostic Imaging Report ---
EXAMINATION: CHEST SINGLE (PORTABLE) COMPARISON: Chest x-ray 06/20/2018 INDICATION: Chest pain, CHF DISCUSSION: Frontal view of the chest obtained at 1204 hours. HEART AND MEDIASTINUM: Stable cardiomegaly and calcifications of the aortic arch. LINES: None. LUNGS: Pulmonary hyperinflation consistent with COPD. The left diaphragm is poorly visualized. No new findings in the right lung. No interstitial edema. Vascular markings are unremarkable area PLEURA: No pleural effusion or pneumothorax. BONES AND SOFT TISSUES: No focal osseous lesion. The soft tissues are normal. IMPRESSION: Stable cardiomegaly without vascular congestion. Retrocardiac airspace opacity may be the result of atelectasis or infiltrate. Recommend correlation with PA and lateral chest x-ray if clinically feasible. Signed by: Dr. Petty Wheeler MD on 06/27/2018 12:14 PM
[2018-06-27] MEDS ORDERED: DILTIAZEM 24HR120 M1 PO (12:19)
[2018-06-27] MEDS ORDERED: DILTIAZEM HCL 5 MG/ML 5 ML VIAL IV ONE (12:30)
[2018-06-27 12:44] LABS: ALBUMIN 4.3 g/dL (3.5-5.0); ALBUMIN/GLOBULIN RATIO 1.3 (0.8-2.0); ANION GAP 17.2 mmol/L (8-16); CALCIUM 10.1 mg/dL (8.4-10.2); CREATININE, SERUM 1.37 mg/dL (0.57-1.11); POTASSIUM 4.2 mmol/L (3.5-5.1)
[2018-06-27 12:52] LABS: THYROID STIMULATING HORMONE 1.138 uIU/mL (0.350-4.940)
[2018-06-27 13:06] VITALS: BP 143/81
== END 2018-06-27 13:30 | disposition home or self-care (01) ==
LOC: ER 11:17
DX: R00.2 Palpitations (principal); R07.89 Other chest pain; I48.2 Chronic atrial fibrillation; I10 Essential (primary) hypertension; I51.9 Heart disease, unspecified
CPT/HCPCS: 36415; 71045; 80053; 83880; 84436; 84443; 84479; 85025; 85379; 93005; 99284; J7040